=== PATIENT | male | born 1995 | race African-American/Black ===

== ENCOUNTER 2017-10-31 06:32 | Emergency (ER) | payer SELFPAY ==
[~2017-10-31] VITALS: Ht 177.8 cm; Wt 73.0 kg
[2017-10-31 06:38] VITALS: BP 179/87; PULSE 65; RESP 14; TEMP 97.6; O2SAT 100
[2017-10-31 06:42] VITALS: BP 143/87; PULSE 59; RESP 16; O2SAT 100
[2017-10-31] MEDS ORDERED: SODIUM CHLORIDE 0.9% FLUSH 10 ML FLUSH IVF PRN (07:15)
--- NOTE | 2017-10-31 07:20 | PD ---
HPI Chief Complaint: Chest Pain Time Seen by Provider: 07:15 Travel History International Travel<30 days: No Contact w/Intl Traveler<30days: No Traveled to known affect area: No History of Present Illness HPI 22-year-old male patient with history of no significant past medical issues, presents to the ER today because he states that he has been having several days history of intermittent substernal left-sided sharp chest pains that would last several minutes at a time, usually about 6 out of 10, and then go away. He reports some shortness of breath. He has been a little bit more stress than usual but does not know of any triggers to the chest pains. He denies any fevers, coughing, or any other symptoms. He is not having any chest pains currently. He denies any family history of early heart disease or any sudden deaths within the family. Modifying Factors: None Associated Signs & Symptoms: Intermittent chest pains Risk Factors: None PFSH Past Medical History Medical History: Denies Significant Hx Diminished Hearing: No Tetanus Vaccination: < 5 Years Influenza Vaccination: Yes Past Surgical History Surgical History: No Previous Surgery Other Surgery: Yes Social History Alcohol Use: No Tobacco Use: No Substance Use: No Allergies-Medications (Allergen,Severity, Reaction): Coded Allergies: No Known Allergies (Unverified Adverse Reaction, Unknown, 10/31/17) Reported Meds & Prescriptions Reported Meds & Active Scripts Active No Active Prescriptions or Reported Medications Review of Systems Except as stated in HPI: all other systems reviewed are Neg Physical Exam Narrative GENERAL: Well-developed young -[place] male patient currently in no acute distress. Awake and oriented 3. SKIN: Focused skin assessment warm/dry. HEAD: Atraumatic. Normocephalic. EYES: Pupils equal and round. No scleral icterus. No injection or drainage. ENT: No nasal bleeding or discharge. Mucous membranes pink and moist. NECK: Trachea midline. No JVD. Supple. CARDIOVASCULAR: Regular rate and rhythm. No murmur appreciated. RESPIRATORY: No accessory muscle use. Clear to auscultation. Breath sounds equal bilaterally. GASTROINTESTINAL: Abdomen soft, non-tender, nondistended. Hepatic and splenic margins not palpable. MUSCULOSKELETAL: No obvious deformities. No clubbing. No cyanosis. No edema. NEUROLOGICAL: Awake and alert. No obvious cranial nerve deficits. Motor grossly within normal limits. Normal speech. PSYCHIATRIC: Appropriate mood and affect; insight and judgment normal. Data Data Last Documented VS Vital Signs Date Time Temp Pulse Resp B/P (MAP) Pulse Ox O2 Delivery O2 Flow Rate FiO2 10/31/17 07:29 100 10/31/17 07:29 59 18 137/83 (101) Room Air 10/31/17 06:38 97.6 Orders Orders Electrocardiogram (10/31/17 07:15) Ckmb (Isoenzyme) Profile (10/31/17 07:15) Complete Blood Count With Diff (10/31/17 07:15) Comprehensive Metabolic Panel (10/31/17 07:15) D-Dimer (10/31/17 07:15) Magnesium (Mg) (10/31/17 07:15) Prothrombin Time / Inr (Pt) (10/31/17 07:15) Act Partial Throm Time (Ptt) (10/31/17 07:15) Troponin I (10/31/17 07:15) Ecg Monitoring (10/31/17 07:15) Bilateral Bp Monitoring (10/31/17 07:15) Iv Access Insert/Monitor (10/31/17 07:15) Oximetry (10/31/17 07:15) Oxygen Administration (10/31/17 07:15) Sodium Chloride 0.9% Flush (Ns Flush) (10/31/17 07:15) Chest, Pa & Lat (10/31/17 07:15) CKMB (10/31/17 07:30) CKMB% (10/31/17 07:30) Ed Discharge Order (10/31/17 08:29) Labs Laboratory Tests Test 10/31/17 07:30 White Blood Count 5.1 TH/MM3 Red Blood Count 4.34 MIL/MM3 Hemoglobin 12.7 GM/DL Hematocrit 37.4 % Mean Corpuscular Volume 86.3 FL Mean Corpuscular Hemoglobin 29.2 PG Mean Corpuscular Hemoglobin Concent 33.8 % Red Cell Distribution Width 13.8 % Platelet Count 196 TH/MM3 Mean Platelet Volume 7.9 FL Neutrophils (%) (Auto) 27.7 % Lymphocytes (%) (Auto) 63.4 % Monocytes (%) (Auto) 7.1 % Eosinophils (%) (Auto) 1.3 % Basophils (%) (Auto) 0.5 % Neutrophils # (Auto) 1.4 TH/MM3 Lymphocytes # (Auto) 3.2 TH/MM3 Monocytes # (Auto) 0.4 TH/MM3 Eosinophils # (Auto) 0.1 TH/MM3 Basophils # (Auto) 0.0 TH/MM3 CBC Comment AUTO DIFF Differential Total Cells Counted 100 Neutrophils % (Manual) 22 % Lymphocytes % 74 % Monocytes % 3 % Eosinophils % 1 % Neutrophils # (Manual) 1.1 TH/MM3 Differential Comment FINAL DIFF MANUAL Platelet Estimate NORMAL Platelet Morphology Comment NORMAL Prothrombin Time 11.1 SEC Prothromb Time International Ratio 1.1 RATIO Activated Partial Thromboplast Time 26.1 SEC D-Dimer Quantitative (PE/DVT) LESS THAN 0.19 MG/L FEU Blood Urea Nitrogen 21 MG/DL Creatinine 1.17 MG/DL Random Glucose 91 MG/DL Total Protein 7.5 GM/DL Albumin 4.3 GM/DL Calcium Level 8.7 MG/DL Magnesium Level 2.1 MG/DL Alkaline Phosphatase 53 U/L Aspartate Amino Transf (AST/SGOT) 21 U/L Alanine Aminotransferase (ALT/SGPT) 19 U/L Total Bilirubin 0.3 MG/DL Sodium Level 139 MEQ/L Potassium Level 3.7 MEQ/L Chloride Level 104 MEQ/L Carbon Dioxide Level 28.3 MEQ/L Anion Gap 7 MEQ/L Estimat Glomerular Filtration Rate 96 ML/MIN Total Creatine Kinase 298 U/L Creatine Kinase MB 0.8 NG/ML Troponin I LESS THAN 0.02 NG/ML MDM Medical Decision Making Medical Screen Exam Complete: Yes Emergency Medical Condition: Yes Medical Record Reviewed: Yes Interpretation(s) EKG shows sinus bradycardia with sinus dysrhythmia at a rate of 54 bpm. Early repolarization seen. No signs of acute ST elevations or depressions. No delta waves. Laboratory Tests Test 10/31/17 07:30 Red Blood Count 4.34 MIL/MM3 (4.50-5.90) Hemoglobin 12.7 GM/DL (13.0-17.0) Hematocrit 37.4 % (39.0-51.0) Lymphocytes (%) (Auto) 63.4 % (9.0-44.0) Neutrophils # (Auto) 1.4 TH/MM3 (1.8-7.7) Lymphocytes % 74 % (9-44) Neutrophils # (Manual) 1.1 TH/MM3 (1.8-7.7) Blood Urea Nitrogen 21 MG/DL (7-18) Troponin I LESS THAN 0.02 NG/ML Last 24 hours Impressions Chest X-Ray 10/31/17 0715 Signed Impressions: Service Date/Time: Tuesday, October 31, 2017 07:28 - CONCLUSION: Normal examination. Margaux Mcdowell MD Differential Diagnosis Dysrhythmias versus anxiety versus ACS versus muscular skeletal Narrative Course Vital signs are stable in the ER. He is not having symptoms currently. EKG did not show current dysrhythmias. He has early depolarization, no delta waves or prolongation of QTC. He admits that he has been under stress recently but denies any homicidal or suicidal ideation. He is not willing to tell me the exact circumstances. I have talked to him about whether he wants to see a psychiatrist today, but he states that he is willing to follow-up with his primary care doctor and get that done as an outpatient. At this point, my plan would be to release him with follow-up to primary care doctor and outpatient psychiatry and cardiology should symptoms continue. Return for any worsening in symptoms. The plan has been discussed with him he states understanding. Diagnosis Primary Impression: Anxiety Additional Impression: Atypical chest pain Referrals: Jean Romero DO Scripts No Active Prescriptions or Reported Meds Disposition: 01 DISCHARGE HOME Condition: Stable Christina Matos MD Oct 31, 2017 07:20
[2017-10-31 07:29] VITALS: BP_SYST 135; BP_SYST 137; BP_DIAS 65; BP_DIAS 83; PULSE 59; RESP 18; O2SAT 100
[2017-10-31 07:36] LABS: AUTOMATED NEUTROPHIL # 1.4 TH/MM3 (1.8-7.7); BASOPHIL % 0.5 % (0.0-2.0); EOSINOPHIL # 0.1 TH/MM3 (0-0.4); EOSINOPHIL % 1.3 % (0.0-4.0); HEMATOCRIT 37.4 % (39.0-51.0); HEMOGLOBIN 12.7 GM/DL (13.0-17.0); LYMPH % 63.4 % (9.0-44.0); LYMPHOCYTE # 3.2 TH/MM3 (1.0-4.8); MEAN CELL VOLUME 86.3 FL (80.0-100.0); MEAN CORPUSCULAR HEMOGLOBIN 29.2 PG (27.0-34.0); MEAN CORPUSCULAR HGB CONC 33.8 % (32.0-36.0); MEAN PLATELET VOLUME 7.9 FL (7.0-11.0); MONO % 7.1 % (0.0-8.0); MONOCYTE # 0.4 TH/MM3 (0-0.9); NEUT % 27.7 % (16.0-70.0); PLATELET COUNT 196 TH/MM3 (150-450); RED BLOOD COUNT 4.34 MIL/MM3 (4.50-5.90); RED CELL DISTRIBUTION WIDTH 13.8 % (11.6-17.2); WHITE BLOOD COUNT 5.1 TH/MM3 (4.0-11.0)
--- NOTE | 2017-10-31 07:39 | RADRPT ---
EXAM DATE/TIME: 10/31/2017 07:28 [facility] COMPARISON: No previous studies available for comparison. INDICATIONS : Chest pain. Left side. MEDICAL HISTORY : None. SURGICAL HISTORY : None. ENCOUNTER: Initial ACUITY: 1 week PAIN SCORE: 6/10 LOCATION: Bilateral chest FINDINGS: PA and lateral views of the chest demonstrate the lungs to be symmetrically aerated without evidence of mass, infiltrate or effusion. The cardiomediastinal contours are unremarkable. Osseous structure s are intact. CONCLUSION: Normal examination. Margaux Mcdowell MD on October 31, 2017 at 7:36 Board Certified Radiologist. This report was verified electronically.
[2017-10-31 07:52] LABS: INTERNATIONAL NORMALIZED RATIO 1.1 RATIO; PROTHROMBIN TIME - PATIENT 11.1 SEC (9.8-11.6)
[2017-10-31 07:54] LABS: D-DIMER LESS THAN 0.19 MG/L FEU (0.00-0.50)
[2017-10-31 08:01] LABS: ALBUMIN 4.3 GM/DL (3.4-5.0); AST (GOT) 21 U/L (15-39); BICARBONATE 28.3 MEQ/L (21.0-32.0); BLOOD UREA NITROGEN 21 MG/DL (7-18); CALCIUM 8.7 MG/DL (8.5-10.1); CHLORIDE 104 MEQ/L (98-107); CREATININE 1.17 MG/DL (0.60-1.30); GLOMERULAR FILTRATION RATE 96 ML/MIN (>89); GLUCOSE,RANDOM 91 MG/DL (74-106); MAGNESIUM 2.1 MG/DL (1.5-2.5); SODIUM (NA) 139 MEQ/L (136-145)
[2017-10-31 08:02] LABS: ALT (GPT) 19 U/L (9-52)
[2017-10-31 08:06] LABS: ALKALINE PHOSPHATASE 53 U/L (45-117); TOTAL BILIRUBIN ADULT 0.3 MG/DL (0.2-1.0); TOTAL PROTEIN 7.5 GM/DL (6.4-8.2); TROPONIN I LESS THAN 0.02 NG/ML (0.02-0.05)
[2017-10-31 08:32] LABS: LYMPHOCYTES 74 % (9-44); MONOCYTES 3 % (0-8); NEUTROPHIL # MANUAL DIFF 1.1 TH/MM3 (1.8-7.7); POLYS (SEG NEUTROPHILS) 22 % (16-70)
[2017-10-31 08:49] VITALS: BP 132/62
--- NOTE | 2017-11-01 15:59 | EKG ---
Date Performed: 10/31/2017 Time Performed: 07:37:56 PTAGE: 22 years EKG: SINUS BRADYCARDIA WITH SINUS ARRHYTHMIA POSSIBLE RIGHT VENTRICULAR CONDUCTION DELAY EARLY R EPOLARIZATION BORDERLINE ECG NO PREVIOUS TRACING DOCTOR: Darryl Gilbert Interpretating Date/Time 11/01/2017 15:58:41
== END 2017-10-31 09:25 | disposition home or self-care (01) ==
LOC: NEPC 06:32
DX: R07.89 Other chest pain (principal); F41.9 Anxiety disorder, unspecified; R00.1 Bradycardia, unspecified; I49.8 Other specified cardiac arrhythmias; R06.02 Shortness of breath
CPT/HCPCS: 71046; 80053; 82550; 82552; 83735; 84484; 85007; 85027; 85379; 85610; 85730; 93005